=== PATIENT | male | born 1965 | race Caucasian/White ===

== ENCOUNTER 2021-01-21 02:14 | Outpatient (CLI) | payer OTHER, SELFPAY ==
[2021-01-21] MEDS: Methacholine 100 MG VIAL IH (17:04)
[2021-01-21] MEDS: Albuterol HFA 18 GM 200 PUFF INH IH (17:04)
[2021-01-21] MEDS: Inhaler, Assist Device 1 EACH MC (17:05)
--- NOTE | 2021-02-05 06:18 | W.PFT ---
Date of service: 12/22/20 Time of Service: 15:10 Pulmonary Function Test Result Requesting Provider Lila Indications: Dyspnea Interpretation Spirometry: There is no airflow limitation. There is not a significant response to methacholine. Impression Normal spirometry with a negative methacholine challenge. Clinical Correlation therefore is recommended.
--- NOTE | 2021-02-05 06:23 | W.PFT ---
Date of service: 12/22/20 Time of Service: 15:10 Pulmonary Function Test Result Requesting Provider Duchene Indications: Dyspnea Interpretation Spirometry: Normal muscle pressures. Impression Normal muscle pressures Clinical Correlation therefore is recommended.
== END 2021-01-21 02:15 | disposition home or self-care (01) ==
LOC: RT 02:14
PROVIDERS: PCP Nurse Practitioner Acute Care; Visit Provider Student in an Organized Health Care Education/Training Program
DX: R06.09 Other forms of dyspnea (principal); R07.81 Pleurodynia; Z87.891 Personal history of nicotine dependence
CPT/HCPCS: 94060; 95070; J7674

== ENCOUNTER → 2021-01-29 02:22 | Outpatient (CLI) | payer OTHER, SELFPAY ==
[2021-01-29] MEDS: Omnipaque 350 MG/ML 100 ML BTL IJ (08:18)
[2021-01-29] MEDS: Normal Saline Flush 10 ML SYR IVP (08:21)
[2021-01-29] MEDS: Normal Saline - Diluent 50 ML VIAL IV (08:21)
--- NOTE | 2021-01-29 08:21 | DI.CT_ITS ---
Exam(s) CT CHEST PE CTA EXAM: CT CHEST PE CTA CLINICAL HISTORY: dyspnea, acute onset, persistent,r06.00. TECHNIQUE: Imaging Protocol: Axial CT angiography was performed with multi-slice acquisition and mu lti-planar and/or 3D reconstructions. CONTRAST MATERIAL: Intravenous: Omnipaque 350 Contrast volume:100 ml COMPARISON: No exams were available for comparison FINDINGS: Pulmonary Arteries: No evidence of filling defect to suggest pulmonary emboli. Tracheobronchial tree: Patent where visualized. Mediastinum and Paz: No dominant adenopathy or fluid collection. No aortic dissection. Pulmonary parenchyma: Expiratory changes and mild respiratory motion. No focal infiltrate. Pleura: No effusion or pneumothorax. Heart: The heart is not dilated. No coronary artery calcifications are seen. Aorta: Thoracic aorta non-dilated. No aortic dissection. Upper abdomen: Unremarkable. Bones: Unremarkable for age. IMPRESSION: No evidence of pulmonary embolism or other acute abnormality. Lungs suboptimally evaluated due to ex piratory changes and respiratory motion.. RADIATION DOSE DELIVERED: 637.92mGy.cm Total DLP DATA REPOSITORY: All CT scans at this facility are submitted to the National Radiology Data Registry (NRDR) Dose Index Registry (DIR) with the [employer] ([employer]). RADIATION OPTIMIZATION: All CT scans at this facility use at least one of these dose optimization te chniques: automated exposure control; mA and/or kV adjustment per patient size (includes targeted exa ms where dose is matched to clinical indication); or iterative reconstruction.
== END ==
PROVIDERS: PCP Nurse Practitioner Acute Care; Visit Provider Student in an Organized Health Care Education/Training Program
DX: R06.09 Other forms of dyspnea (principal); Z01.812 Encounter for preprocedural laboratory examination
CPT/HCPCS: 71275; 82565; J3490

== ENCOUNTER 2021-02-01 00:21 | Outpatient (CLI) | payer OTHER, SELFPAY ==
--- NOTE | 2021-02-01 15:02 | DI.US_ITS ---
APPROVED REPORT EXAM: Comprehensive 2D, Doppler, and color-flow Echocardiogram Patient Location: Out-Patient [facility] Puncher: Peggy Valera RDCS (AE) Indications: Dyspnea on exeretion Other Information Study Quality: Fair. Technically limited study due to body habitus. Conclusion Normal left ventricular wall thickness and chamber size. Estimated ejection fraction is 55 to 60%. There are no segmental wall motion abnormalities Normal right ventricular size and systolic function Both atria are normal in size There is no structural or hemodynamically significant valvular disease Dilated ascending aorta measuring 4.33 cm Normal estimated right ventricular systolic pressure 17 mmHg Wall motion Left Ventricle The left ventricle is normal size. The left ventricular systolic function is normal. The left ventric ular ejection fraction is within the normal range. There is normal left ventricular wall thickness. T here is normal LV segmental wall motion. There is no ventricular septal defect visualized. LVEF is 58 %. Right Ventricle The right ventricle is normal size. The right ventricular systolic function is normal. The RVSP is 17 .1 mmHg. Atria The left atrium size is normal. The right atrium size is normal. The interatrial septum is intact wit h no evidence for an atrial septal defect. Aortic Valve The aortic valve is normal in structure. Aortic valve is trileaflet. There is no aortic valvular william nosis. No aortic regurgitation is present. Mitral Valve The mitral valve is normal in structure. No evidence of mitral valve stenosis. Trace mitral regurgita tion. Tricuspid Valve The tricuspid valve is normal in structure. There is no tricuspid valve stenosis. Trace tricuspid reg urgitation. Pulmonic Valve The pulmonary valve is normal in structure. There is no pulmonic valvular stenosis. There is no pulmo benjamín valvular regurgitation. Great Vessels The aortic root is normal in size. The ascending aorta is dilated.4.33 cm Aortic arch is not well vis ualized. IVC is normal in size and collapses >50% with inspiration. Pericardium There is no pericardial effusion. 2D Dimensions IVSD d PLAX 1.09 cm M: 0.6-1.2 LV Vol A2C d MOD 127.3 mL LVPW d PLAX 1.01 cm M: 0.6 - 1.2 LV Vol A4C d MOD 158.5 mL LVID d PLAX 5.27 cm M: 4.2 - 5.8 LA vol/ BSA A2C s A-L 30.9 mL/m2 LVDs 3.55 cm M: 2.5 - 4.0 LA vol/ BSA A4C s A-L 24.5 mL/m2 Ao Root d 3.29 cm M: 3.1 - 3.7 LA Vol/ BSA Biplane s A-L 28.6 mL/m2 RA Area A4C 15.43 cm2 LA Area A4C s MOD 20.15 cm2 RA Vol/ BSA A4C s A-L 14.7 mL/m2 LA Area A2C s MOD 23.51 cm2 Ao Asc Diam d 4.33 cm M: 2.6 - 3.4 LV EF A4C MOD 58.3 % LV EF Teichholz 59.9 % LV EF A2C MOD 58.2 % LVEF (Weinstein's) 55.57 % M: 52 - 72 LV EF Biplane MOD 55.6 % LV Volume 99.92 mL M: 62 - 150 SV 79.52 mL LV Volume Index 39.65 mL/m2 M: 34 - 74 SV Index 31.53 mL/m2 LV Vol Biplane MOD 143.1 mL FS 32.10 % M-Mode TAPSE 3.19 cm (M/F) >1.7 LV Diastology MV E' medial 0.109 (>0.07 m/s) E/A Ratio 1.0 LV E/e MED 6.20 (<14) MV E Vmax 0.68 (0.4-1.3 m/s) MV E' lateral 0.109 (>0.1 m/s) MV A Vmax 0.65 (0.4-1.3 m/s) LV E/e LAT 6.20 (<14) MV E/A Ratio 0.99 MV E/E' medial 6.25 MV E/E' lateral 6.25 Aortic Valve LVOT Area 3.67 cm2 AoV Area Vmax 3.00 cm2 LVOT Vmax 1.16 m/s AoV Area/ BSA (Vmax) 1.19 cm2/m2 LVOT Mean Jaylon. 0.72 m/s ANTOINE Mean Jaylon. 2.66 cm2 LVOT Peak Grad 5.4 mmHg ANTOINE Mean Jaylon. Index 1.05 cm2/m2 LVOT Mean Grad 2.5 mmHg LVOT VTI 0.233 m LVOT Diam s 2.15 cm AoV Vmax 1.42 m/s Velocity Ratio 0.81 AoV Mean Jaylon. 0.99 m/s AoV Peak Grad 8.0 mmHg LVOT SV 85.32 mL AoV Mean Grad 4.4 mmHg AoV VTI 0.267 m AoV Area VTI 3.20 cm2 AoV Area/ BSA (VTI) 1.27 cm/m2 Mitral Valve MV DT 260 (160-240 msec) MV PHT 75 msec MV Area PHT 2.92 cm2 MV VTI 0.212 m MV Area VTI 4.02 (4.0-6.0 cm2) Pulmonary Valve PV Vmax 0.95 (0.5-1.5 m/s) RVOT Peak Gr. 2.97 mmHg PV Peak Grad 3.6 mmHg RVOT Mean Gr. 1.35 mmHg PV Mean Grad 1.8 mmHg RVOT VTI 0.134 m PV VTI 0.158 m RVOT Vmax 0.86 m/s Tricuspid Valve TR Peak Grad 14.0 mmHg TR Vmax 1.88 m/s RA Pressure 3.00 mmHg RVSP (TR) 17.1 mmHg
== END 2021-02-01 00:41 ==
PROVIDERS: PCP Nurse Practitioner Acute Care; Visit Provider Student in an Organized Health Care Education/Training Program
DX: R06.00 Dyspnea, unspecified (principal); I77.810 Thoracic aortic ectasia; R93.9 Diagnostic imaging inconclusive due to excess body fat of patient; E66.01 Morbid (severe) obesity due to excess calories
CPT/HCPCS: 93306